=== PATIENT | male | born 1985 | race Caucasian/White ===

== ENCOUNTER 2019-05-02 16:39 | Emergency (ER) | payer SELFPAY ==
--- NOTE | 2019-05-02 17:27 | RAD ---
Left foot 3 views: 05/02/2019 COMPARISON: None HISTORY: Injury, trauma, pain FINDINGS: Medial to the navicular bone and medial cuneiform there is soft tissue swelling and small v olume subcutaneous gas, consistent with laceration. No associated displaced fracture or evidence of dislocation is seen. IMPRESSION: Soft tissue injury medially with no associated displaced fracture or dislocation.
[2019-05-02] MEDS ORDERED: Lidocaine 1% (PF) 30 ML VIAL ONE (18:01)
[2019-05-02] MEDS ORDERED: Adacel (T-DAP) 0.5 ML SYRINGE ONE (18:01)
[2019-05-02] MEDS ORDERED: Bacitracin 1 PK ONE (18:13)
== END 2019-05-02 18:22 | disposition home or self-care (01) ==
LOC: NAV ERS 16:39
DX: S91.312A Laceration without foreign body, left foot, initial encounter (principal); K21.9 Gastro-esophageal reflux disease without esophagitis; F41.9 Anxiety disorder, unspecified; F17.210 Nicotine dependence, cigarettes, uncomplicated; Z79.899 Other long term (current) drug therapy; W27.8XXA Contact with other nonpowered hand tool, initial encounter
CPT/HCPCS: 12001; 36416; 90471; 90715; J2001